=== PATIENT | female | born 1950 | race Caucasian/White ===

== ENCOUNTER 2016-10-08 07:29 | Inpatient (IN) | payer SELFPAY ==
[2016-10-08] VITALS (9 sets, daily range): BP systolic 102–138; BP diastolic 48–79
[~2016-10-08] VITALS: Ht 162.6 cm; Wt 65.1 kg
[2016-10-08 08:28] LABS: BASOPHILS 0.3 % (0-2); EOSINOPHILS 1.5 % (0-7); HEMATOCRIT 40.2 % (36.0-48.0); HEMOGLOBIN 13.7 g/dL (12-16); IMMATURE GRANULOCYTES 0.3 % (0-5); LYMPHOCYTES 5.7 % (15-50); MCH 32.6 pg (26.0-34.0); MCHC 34.1 g/dL (31.0-37.0); MCV 95.7 fL (80.0-100.0); MEAN PLATELET VOLUME 10.6 fL (7.4-10.4); MONOCYTES 7.1 % (2-11); NEUTROPHILS 85.1 % (40-80); PLATELET COUNT 241 10x3/uL (130-400); RDW 15.1 % (11.5-14.5); WBC 19.6 10x3/uL (4.8-10.8)
[2016-10-08 08:45] LABS: CREATINE KINASE 52 UL (21-215); TROPONIN-I < 0.017 ng/mL (0.000-0.060)
[2016-10-08 09:00] LABS: ALBUMIN 3.6 g/dL (3.4-5.0); ALKALINE PHOSPHATASE 152 U/L (46-116); ALT (SGPT) 176 U/L (10-68); CALC OSMOLALITY 275 mosm/kg (275-300); CALCIUM 9.6 mg/dL (8.5-10.1); CARBON DIOXIDE 25.9 mmol/L (21.0-32.0); CHLORIDE - SERUM 101 mmol/L (98-107); CREATININE - SERUM 0.7 mg/dL (0.6-1.3); GLUCOSE 114 mg/dL (74-106); POTASSIUM - SERUM 4.2 mmol/L (3.5-5.1); PROTEIN - SERUM 7.2 g/dL (6.4-8.2); SODIUM 138 mmol/L (136-145); UREA NITROGEN 10 mg/dL (7-18); eGFR NON AFRICAN AMERICAN 90 mL/min (90-120)
[2016-10-08 09:25] LABS: APPEARANCE CLEAR (CLEAR); BILIRUBIN NEGATIVE (NEGATIVE); COLOR YELLOW (YELLOW); GLUCOSE NEGATIVE (NEGATIVE); KETONE NEGATIVE (NEGATIVE); LEUKOCYTE ESTERASE NEGATIVE (NEGATIVE); NITRITE NEGATIVE (NEGATIVE); PROTEIN TRACE mg/dL (NEGATIVE); UROBILINOGEN NORMAL (NORMAL)
[2016-10-08 09:26] LABS: BACTERIA FEW /hpf (NONE SEEN); EPITHELIAL CELLS 0-5 /hpf (0-5); WHITE CELLS - URINE 0-5 /hpf (0-5)
[2016-10-08 09:44] LABS: UDS - AMPHET NEGATIVE QUAL (NEGATIVE); UDS - BARB NEGATIVE QUAL (NEGATIVE); UDS - BENZO NEGATIVE QUAL (NEGATIVE); UDS - COCAINE NEGATIVE QUAL (NEGATIVE); UDS - METH NEGATIVE QUAL (NEGATIVE); UDS - OPIATE NEGATIVE QUAL (NEGATIVE); UDS - PCP NEGATIVE QUAL (NEGATIVE); UDS - THC NEGATIVE QUAL (NEGATIVE)
--- NOTE | 2016-10-08 19:30 | NUR ---
SHIFT ASSESSMENT COMPLETED. SEE ASSESSMENT FLOWSHEET. BREATHING TREATMENT IN PROGRESS. SOB AFTERWARDS AND O2 SATS DECREASED TO 88% TEMPORARILY. O2 VIA CANNULA AND INCREASED TO 3LPM TEMPORARILY. SAT UP ON SIDE OF BED. SLOWLY BREATHING BACK TO BASELINE. WILL MONITOR.
--- NOTE | 2016-10-08 20:10 | NUR ---
PO MEDS GIVEN. WILL MONITOR.
--- NOTE | 2016-10-08 21:20 | NUR ---
FAMILY AT BEDSIDE. IV ABX HUNG. WILL MONITOR.
--- NOTE | 2016-10-08 22:55 | NUR ---
REASSESSMENT COMPLETED. SEE ASSESSMENT FLOWSHEET. JUST HAD BREATHING TREATMENT. ANOTHER PILLOW PLACED BEHIND BACK. O2 SATS 96%. TEMP 99.2 ORALLY. WILL MONITOR.
[2016-10-09] VITALS (21 sets, daily range): BP systolic 107–179; BP diastolic 44–93
--- NOTE | 2016-10-09 00:50 | NUR ---
EYES CLOSED. MOUTH OPEN. NO ACUTE DISTRESS NOTED. WILL MONITOR.
--- NOTE | 2016-10-09 02:00 | NUR ---
EYES CLOSED. MOUTH OPEN. NO ACUTE DISTRESS NOTED. WILL MONITOR.
--- NOTE | 2016-10-09 03:20 | NUR ---
REASSESSMENT COMPLETED. SEE FLOWSHEET. ASSISTED UP TO BSC TO URINATE. BACK TO BED. SOB NOTED. BREATHING TREATMENT PRN STARTED PER JANI WITH R.T.
--- NOTE | 2016-10-09 03:40 | NUR ---
CRACKERS AND PEANUT BUTTER GIVEN PER REQUEST.
[2016-10-09 04:22] LABS: BASOPHILS 0.1 % (0-2); EOSINOPHILS 0 % (0-7); HEMATOCRIT 34.9 % (36.0-48.0); HEMOGLOBIN 11.6 g/dL (12-16); IMMATURE GRANULOCYTES 0.4 % (0-5); LYMPHOCYTES 3.5 % (15-50); MCH 32.1 pg (26.0-34.0); MCHC 33.2 g/dL (31.0-37.0); MCV 96.7 fL (80.0-100.0); MEAN PLATELET VOLUME 10.3 fL (7.4-10.4); MONOCYTES 3.3 % (2-11); NEUTROPHILS 92.7 % (40-80); PLATELET COUNT 240 10x3/uL (130-400); RBC 3.61 10x6/uL (4.00-5.40); RDW 15.5 % (11.5-14.5); WBC 16.1 10x3/uL (4.8-10.8)
[2016-10-09 04:32] LABS: ALBUMIN 2.9 g/dL (3.4-5.0); ALKALINE PHOSPHATASE 137 U/L (46-116); AMYLASE - SERUM 29 U/L (25-115); CALCIUM 8.6 mg/dL (8.5-10.1); CARBON DIOXIDE 23.3 mmol/L (21.0-32.0); CHLORIDE - SERUM 107 mmol/L (98-107); CREATININE - SERUM 0.8 mg/dL (0.6-1.3); LIPASE 100 U/L (73-393); MAGNESIUM - SERUM 1.9 mg/dL (1.8-2.4); PHOSPHOROUS 2.1 mg/dL (2.5-4.9); SODIUM 139 mmol/L (136-145); eGFR NON AFRICAN AMERICAN 77 mL/min (90-120)
[2016-10-09 04:33] LABS: ALT (SGPT) 123 U/L (10-68); CALC OSMOLALITY 279 mosm/kg (275-300); GLUCOSE 172 mg/dL (74-106); POTASSIUM - SERUM 3.5 mmol/L (3.5-5.1); UREA NITROGEN 7 mg/dL (7-18)
--- NOTE | 2016-10-09 05:08 | NUR ---
EYES CLOSED. LIGHT IN ROOM STILL ON. AWOKE EASILY TO TAKE PO PROTONIX. EXPLAINED MED AND USE FOR. VERBALIZED UNDERSTANDING. IV ABX STARTED. WILL MONITOR.
--- NOTE | 2016-10-09 05:40 | NUR ---
KCL PO PLACED IN ORANGE JUICE AND GIVEN PER ELECTROLYTE PROTOCOL FOR K+ 3.5. COFFEE AND WATER ALSO GIVEN PER REQUEST. WILL MONITOR.
--- NOTE | 2016-10-09 11:47 | HP ---
PATIENT: MAURI UNDERWOOD MEDICAL RECORD: [id number] ACCOUNT: [id number] LOCATION:[facility] D.2302 : 52 ADMISSION DATE: 10/08/16 HISTORY AND PHYSICAL EXAMINATION Admission History and Physical HISTORY OF PRESENT ILLNESS: A 65-year-old female, who presents to the Emergency Room with a fever, chills, shortness of breath, long-term history of nicotine dependence, history of COPD, does not have a primary care doctor, has been in the urgent care multiple occasions. She is on albuterol inhaler. ALLERGIES: LISTED CODEINE, SULFA, PENICILLIN AND PHENOBARBITAL. FAMILY HISTORY: Noncontributory. REVIEW OF SYSTEMS: Significant for the above. No acute change in weight. HEENT: No cephalgia, visual changes, tinnitus, epistaxis or dysphagia. CARDIOVASCULAR: Denies chest pain. PULMONARY: Denies hemoptysis. Admits progressive shortness of breath, fever, chills significantly worse this morning. GASTROINTESTINAL: Denies hematemesis, hematochezia or melena. GENITOURINARY: Denies dysuria. MUSCULOSKELETAL: No acute changes. ENDOCRINE: Denies polyuria, polydipsia or polyphagia. PHYSICAL EXAMINATION VITAL SIGNS: Initially, temperature 99.2, spiked to 102; heart rate 118, respirations 22, blood pressure 141/67, O2 sats 92% with 2 liters via nasal cannula. HEENT: Normocephalic and atraumatic. Eyes: Pupils are equal, round and reactive. Ears: Canals patent. TMs intact. Nose: Nares patent, no drainage. Throat: No erythema, no exudates. NECK: Supple. HEART: Regular, tachycardic. LUNGS: Coarse rhonchi bilaterally. ABDOMEN: Soft and nontender. Bowel sounds positive. EXTREMITIES: Present times 4, no edema. NEUROLOGIC: No focal deficits. SKIN: Warm and dry. No rash. LABORATORY DATA: CBC: White count 19,600, hemoglobin 13.7, hematocrit 40.2. ABG showed a pO2 of 63. Chemistry showed a creatinine of 0.7, BUN 10, glucose 114, calcium 9.6, potassium 4.2, sodium 138, chloride 101, bicarb 25.9, total protein 7.2, alkaline phosphatase 152, ALT 176, AST 109. Urine drug screen negative. Urinalysis, no significant abnormalities. DIAGNOSTIC DATA: Chest x-ray: COPD pattern. The patient begun to desat. Chest PE protocol was obtained, which showed no PE, but did show bilateral patchy infiltrates consistent with pneumonia. EKG showed sinus tachycardia, rate of 120. No other significant changes. ASSESSMENT AND PLAN: Exacerbation of chronic obstructive pulmonary disease, acute pneumonia, hypoxemia. The patient was admitted to ICU, IV antibiotics, supplemental O2, DuoNebs, pulmonology consulted. HISTORY AND PHYSICAL [id number] MAURI UNDERWOOD TRANSINT:[id number] Voice Confirmation ID: [id number] DOCUMENT ID: [id number] IMELDA LOPEZ DO at 1147 CC: [id number] DICTATION DATE: 10/08/16 1339 AIR TURNING MACHINE FEEDER: 10/08/16 1532 ADM IN [place] [id number] [place] [address]
--- NOTE | 2016-10-09 11:57 | NUR ---
NO CHANGE NOTED AT PRESENT
--- NOTE | 2016-10-09 14:55 | NUR ---
NO CHANGE NOTED THIS SHIFT TO PRESENT
--- NOTE | 2016-10-09 19:15 | NUR ---
ASSESSMENT COMPLETE. S1S2. RR EXPIRATORY WHEEZE AND CRACKLES NOTED BILATERALLY IN UPPER AND MID LOBES. RR DIMINISHED BILATERALLY IN LOWER LOBES. C/O DYSPNEA AND BEING SOB. AAO. PERRLA. RADIAL AND PEDAL PULSES PALPATED. OCCASIONAL COUGH. FAMILY AT BEDSIDE. UPDATE GIVEN. QUESTIONS ANSWERED.
--- NOTE | 2016-10-09 21:10 | NUR ---
PT TOOK MEDICATIONS WITHOUT DIFFICULTY. FAMILY AT BEDSIDE.
--- NOTE | 2016-10-09 23:30 | NUR ---
PT DENIES ANY NEEDS AT THIS TIME. VSS. NO DISTRESS NOTED. CALL LIGHT IN REACH. C/O SOB. WILL CONTINUE TO MONITOR.
[2016-10-10] VITALS (10 sets, daily range): BP systolic 130–167; BP diastolic 79–95; Ht 162.6 cm; Wt 65.1 kg
--- NOTE | 2016-10-10 00:55 | NUR ---
PT RESTING. EYES CLOSED. VSS. NO DISTRESS NOTED. WILL CONTINUE TO MONITOR.
[2016-10-10 03:45] LABS: BASOPHILS 0.2 % (0-2); EOSINOPHILS 0 % (0-7); HEMATOCRIT 34.1 % (36.0-48.0); HEMOGLOBIN 11.8 g/dL (12-16); IMMATURE GRANULOCYTES 1.6 % (0-5); LYMPHOCYTES 5.7 % (15-50); MCH 33.2 pg (26.0-34.0); MCHC 34.6 g/dL (31.0-37.0); MCV 96.1 fL (80.0-100.0); MEAN PLATELET VOLUME 10.4 fL (7.4-10.4); MONOCYTES 5.2 % (2-11); NEUTROPHILS 87.3 % (40-80); PLATELET COUNT 260 10x3/uL (130-400); RBC 3.55 10x6/uL (4.00-5.40); RDW 15.3 % (11.5-14.5); WBC 19.3 10x3/uL (4.8-10.8)
[2016-10-10 03:55] LABS: CALC OSMOLALITY 288 mosm/kg (275-300); CALCIUM 8.8 mg/dL (8.5-10.1); CARBON DIOXIDE 25.4 mmol/L (21.0-32.0); CHLORIDE - SERUM 108 mmol/L (98-107); CREATININE - SERUM 0.7 mg/dL (0.6-1.3); GLUCOSE 176 mg/dL (74-106); PHOSPHOROUS 2.5 mg/dL (2.5-4.9); POTASSIUM - SERUM 3.4 mmol/L (3.5-5.1); SODIUM 144 mmol/L (136-145); UREA NITROGEN 7 mg/dL (7-18); eGFR NON AFRICAN AMERICAN 90 mL/min (90-120)
--- NOTE | 2016-10-10 11:00 | NUR ---
NO CHANGE NOTED
--- NOTE | 2016-10-10 19:33 | NUR ---
REPORT RECIEVED. ASSESSMENT COMPLETED. PT SOILED HER GOWN AND REQUESTED A BATH GAVE A CLEAN GOWN AND ALLOWED HER TO BATH HER SELF.
--- NOTE | 2016-10-10 23:42 | NUR ---
PT POSITIONED FOR COMFORT. PT STATED " SHE WAS GOGING TO SLEEP".
[2016-10-11 03:00] VITALS: BP 143/80
--- NOTE | 2016-10-11 03:00 | NUR ---
XRAY IS IN THE RM. PT BACK TO SLEEP AFTER.
[2016-10-11 04:01] LABS: HEMATOCRIT 36.7 % (36.0-48.0); HEMOGLOBIN 12.4 g/dL (12-16); MCH 31.9 pg (26.0-34.0); MCHC 33.8 g/dL (31.0-37.0); MCV 94.3 fL (80.0-100.0); MEAN PLATELET VOLUME 10.3 fL (7.4-10.4); PLATELET COUNT 292 10x3/uL (130-400); RBC 3.89 10x6/uL (4.00-5.40); RDW 15.5 % (11.5-14.5)
[2016-10-11 04:21] LABS: CALC OSMOLALITY 283 mosm/kg (275-300); CALCIUM 9.1 mg/dL (8.5-10.1); CARBON DIOXIDE 28.3 mmol/L (21.0-32.0); CHLORIDE - SERUM 106 mmol/L (98-107); CREATININE - SERUM 0.8 mg/dL (0.6-1.3); GLUCOSE 142 mg/dL (74-106); POTASSIUM - SERUM 3.7 mmol/L (3.5-5.1); PRO BNP 1917 pg/mL (0-125); SODIUM 142 mmol/L (136-145); eGFR NON AFRICAN AMERICAN 76 mL/min (90-120)
[2016-10-11 04:31] LABS: UREA NITROGEN 11 mg/dL (7-18)
[2016-10-11 04:42] LABS: LYMPHOCYTES 12 % (15-50); MONOCYTES 7 % (2-11); NEUTROPHILS 70 % (40-80); PLATELET ESTIMATE NORMAL
[2016-10-11 07:00] VITALS: BP 100/90
--- NOTE | 2016-10-11 07:00 | NUR ---
PT AAOX3 AND OBEYS COMMANDS WITH NO DEFICITS. DENIES PAIN AT THIS TIME. PRODUCTIVE COUGH NOTED AND PT STATES SHE CLLEARED HER SINUSES AND CAN NOW BREATHE EASIER. FULL SHIFT ASSESSMENT DOCUMENTED PER FLOWSHEET. PT SINUS TACH ON MONITOR. WILL MONITOR CLOSELY. TRANSFER ORDERS IN COMPUTER.
--- NOTE | 2016-10-11 09:50 | NUR ---
RECEIVED REPORT FROM ICU NURSE FRAN ALONZO RN. PT WILL BE TRANSFERED TO ROOM 2133 VIA WHEELCHAIR.
--- NOTE | 2016-10-11 10:30 | NUR ---
PT TRANSFER TO MED 2 VIA WHEELCHAIR ON 2L NC. BELONGINGS WITH PT. SET UP IN NEW ROOM, CALL LIGHT WITHIN REACH. REPORT CALLED TO ALEXANDR TIAN.
--- NOTE | 2016-10-11 10:45 | NUR ---
PT RECEIVED TO ROOM 2131, VIA WHEELCHAIR, PT ORIENTED TO ROOM AND CALL LIGHT, PROVIDED HER WITH A CUP OF ICE WATER, AND AN EXTRA PILLOW. PT STATED THAT SHE WANTS THE EAR CLIP THAT SHE HAD IN ICU, THAT IT HELPS WITH HER NICOTINE CRAVINGS. WILL CALL NAZIA IN ICU AND SEE IF SHE STILL HAS CLIP. PT DENIES ANY OTHER NEEDS AT THIS TIME. CALL LIGHT IN REACH, PT A LITTLE SOB ON 2L NC, NAD NOTED, CALL LIGHT IN REACH, NAD NOTED, WILL CONTINUE TO MONITOR.
--- NOTE | 2016-10-11 13:50 | NUR ---
PT STATED THAT SHE HAS BEEN HAVING PAIN TO HER LT LOWER QUADRANT, AND WANTED A HEATING PAD. WILL CALL DR. GRANADO AND ASK ABOUT GETTING A HEATING PAD. 8108- CALLED DR. GRANADO'S OFFICE, INFOMRED HIM THAT PT IS HAVING LT LOWER QUADRANT PAIN AND I WANTED TO KNOW IF IT WAS OKAY FOR PT TO HAVE A KPAD. DR. GRANADO STATED THAT IT WOULD BE OKAY FOR THE ORDER TO BE PUT IN.
--- NOTE | 2016-10-11 14:02 | NUR ---
IVBP OF VANCOMYCIN HUNG AT THIS TIME. PT DENIES ANY NEEDS AT THIS TIME. CALL LIGHT IN REACH, NAD NOTED, WILL CONTINUE TO MONITOR.
--- NOTE | 2016-10-11 15:11 | NUR ---
PT C/O PAIN OF 10/10, TO LT LOWER QUADRANT AND HEAD. ADMINISTERED 1000MG OF TYLENOL AND GAVE TESSALON MED AND HUNG LEVAQUIN IVPB AT THIS TIME. FAMILY AT BEDSIDE, CALL LIGHT IN REACH, PT DENIES ANY OTHER NEEDS AT THIS TIME. NAD NOTED, WILL CONTINUE TO MONITOR.
--- NOTE | 2016-10-11 15:36 | NUR ---
PT'S DAUGTHER CAME TO NURSES DESK TO NOTIFY ME THAT PT IS IN ROOM THROWING UP AND LEFT LOWER QUAD IS HURTING REALLY BAD FEELS LIKE SHE HAS A KNOT. WILL NOTIFY DR. GRANADO. 1540- DR. GRANADO NOTIFIED THAT PT IS HAVING LEFT LOWER QUAD PAIN AND FEELS LIKE SHE HAS A KNOT, ALSO THAT PT IS THROWING UP IN ROOM. NEW ORDER FOR CT OF ABD AND PELVIS WITH IV AND ORAL CONT. ALSO TO ORDER 4MG OF ZOFRAN Q4PRN.
[2016-10-11 15:40] VITALS: BP 168/69
--- NOTE | 2016-10-11 16:19 | NUR ---
ADMINISTERED 4MG OF ZOFRAN FOR NUASEA. PT UP TO CHAIR, STILL STATES PAIN LEVEL OF 10/10. DENIES ANY OTHER NEEDS AT THIS TIME. CALL LIGHT IN REACH, FAMILY AT BEDSIDE, NAD NOTED, WILL CONTINUE TO MONITOR.
--- NOTE | 2016-10-11 17:00 | NUR ---
PT TAKEN TO CT, VIA WHEELCHAIR AT THIS TIME, NAD NOTED.
--- NOTE | 2016-10-11 19:45 | NUR ---
RECEIVED REPORT, PT VISITING WITH FAMILY, DENIES ANY NEED, 02-2L, IV-L. WRIST-NS @75, PT IS A&O AND ABLIB, BED IS LOW, SRX2, CALL LIGHT IN REACH, WILL CONTINUE PLAN OF CARE
[2016-10-11 20:12] VITALS: BP 162/82
--- NOTE | 2016-10-11 23:35 | NUR ---
TOOK K-PAD TO PT, CELL TOWER CLIMBER AND SHE PLACED TO L. ABDOMEN, WILL CONTINUE TO MONITOR
[2016-10-11 23:40] VITALS: BP 163/82
--- NOTE | 2016-10-12 00:48 | NUR ---
ASSESSMENT COMPLETE, SEE FLOWSHEET, PT RESTING, NO DISTRESS NOTICE, BED IS LOW, SRX2, CALL LIGHT IN REACH, WILL CONTINUE PLAN OF CARE
[2016-10-12 03:31] VITALS: BP 150/74
[2016-10-12 05:10] LABS: BASOPHILS 0.3 % (0-2); EOSINOPHILS 0 % (0-7); HEMOGLOBIN 11.2 g/dL (12-16); IMMATURE GRANULOCYTES 7.2 % (0-5); LYMPHOCYTES 9.8 % (15-50); MCH 32.1 pg (26.0-34.0); MCHC 33.9 g/dL (31.0-37.0); MCV 94.6 fL (80.0-100.0); MEAN PLATELET VOLUME 10.3 fL (7.4-10.4); MONOCYTES 7.5 % (2-11); NEUTROPHILS 75.2 % (40-80); PLATELET COUNT 290 10x3/uL (130-400); RBC 3.49 10x6/uL (4.00-5.40); RDW 15.6 % (11.5-14.5); WBC 19.9 10x3/uL (4.8-10.8)
[2016-10-12 05:15] LABS: CALC OSMOLALITY 278 mosm/kg (275-300); CALCIUM 8.4 mg/dL (8.5-10.1); CARBON DIOXIDE 29.2 mmol/L (21.0-32.0); CHLORIDE - SERUM 105 mmol/L (98-107); CREATININE - SERUM 0.7 mg/dL (0.6-1.3); GLUCOSE 112 mg/dL (74-106); POTASSIUM - SERUM 3.5 mmol/L (3.5-5.1); SODIUM 140 mmol/L (136-145); UREA NITROGEN 10 mg/dL (7-18); eGFR NON AFRICAN AMERICAN 89 mL/min (90-120)
--- NOTE | 2016-10-12 07:19 | NUR ---
AM ROUNDS- PT IN BED, RECEIVING UPDRAFT. PT DENIES ANY NEEDS AT THIS TIME. CALL LIGHT IN REACH, NAD NOTED, WILL CONTINUE TO MONITOR.
[2016-10-12 08:23] LABS: IMMUNOGLOBULIN E 23 IU/mL (0-100)
[2016-10-12 08:31] VITALS: BP 141/72
--- NOTE | 2016-10-12 08:35 | NUR ---
ADMINISTERED MORNING MEDICATIONS, PT IN BED, DENIES ANY NEEDS AT THIS TIME. CALL LIGHT IN REACH, NAD NOTED, WILL CONTINUE TO MONITOR.
--- NOTE | 2016-10-12 11:31 | EC ---
PATIENT:MAURI UNDERWOOD DATE OF SERVICE: 10/08/16 SEX: F MEDICAL RECORD: [id number] DATE OF : [birth year] LOCATION:D.M2 D.213 AGE OF PATIENT: 66 ADMISSION DATE: 10/08/16 REFERRING PHYSICIAN: INTERPRETING PHYSICIAN: LINDA WALLER MD ECHOCARDIOGRAM REPORT ECHO CHARGES 4 ECHO COMPLETE CLINICAL DIAGNOSIS: SOB ECHOCARDIOGRAPHIC MEASUREMENTS (adult normal given) AC root (d.<3.7cm) 2.5 LV Septum d (<1.2 cm> 1.2 Valve Excursion 1.8 LV Septum (systole) 1.8 Left Atria (s.<4.0cm> 3.5 LVPW d(<1.2cm) 1.1 RV (d.<2.3cm) 2.1 LVPW (sytole) 1.9 LV diastole(<5.6CM) 4.8 MV E-F(>70mm/sec) LV systole 1.9 LVOT Diameter 1.7 MV exc.(>10mm) Est.ejection fraction (50-75%) Pericardial Effusion N DOPPLER: LVIT A 153 E 110 LA RVSP 32.0 LVOT 96.0 AOP1/2T Asc. Ao 303 RVOT 73.0 RA PA 49.0 AV Gradient Peak 37.0 AV Mean 19.0 AV Area 0.8 MV Gradient Peak 14.3 MV Mean 4.3 MV Area COMMENTS: Insurance Sales Representative: Lyndon SILVAOE Wildlife Conservationist:1 Dr. Waller TAPE# PACS DATE OF SERVICE: 10/10/2016 Echocardiogram FINDINGS: 1. Left ventricular chamber size is within normal limits. Left ventricular systolic function is normal. Overall ejection fraction estimated at 60%. 2. Left atrium, right atrium and right ventricular chamber sizes are within normal limits. 3. Valvular structures: Aortic valve demonstrates [id number] calcific ECHOCARDIOGRAM REPORT [id number] MAURI UNDERWOOD aortic stenosis. Valve area calculates to 0.8 cm-squared. There is a gradient of 37 mm across the valve. The remaining valvular structures have normal structure and motion. 4. Doppler interrogation elsewise reveals ilmo-ib-[id number] mitral regurgitation. No other valvular insufficiency or stenosis and pulmonary systolic pressure is normal estimated at 32 mmHg. 5. No evidence of pericardial effusion or left ventricular thrombus. TRANSINT:[id number] Voice Confirmation ID: [id number] DOCUMENT ID: [id number] LINDA WALLER MD at 1131 CC: [id number] DICTATION DATE: 10/11/16 1246 DESIGN TEACHER: 10/11/16 1638 ADM IN [facility] [address] [id number]
[2016-10-12 12:17] LABS: IMMUNOGLOBULIN A 64 mg/dL (87-352); IMMUNOGLOBULIN G 446 mg/dL (700-1600)
[2016-10-12 12:29] VITALS: BP 128/58
--- NOTE | 2016-10-12 13:40 | NUR ---
PT FIXING TO GET IN THE SHOWER, IV DISCONNECTED AT THIS TIME, MIXER WHIPPED TOPPING AT BEDSIDE TO CHANGE LINENS ON PT'S BED. NAD NOTED, WILL CONTINUE TO MONITOR.
--- NOTE | 2016-10-12 15:23 | NUR ---
Patient Name: MAURI UNDERWOOD Admission Status: ER Accout number: [id number] Admission Date: 10-08-2016 : 1950 Admission Diagnosis:FEVER, UNSPECIFIED Attending: YUMIKO Current LOS: 4 Anticipated DC Date: Planned Disposition: Home Primary Insurance: UNINSURED DISCOUNT PLAN Discharge Planning Comments: * Is the patient Alert and Oriented? Yes 0 * How many steps to enter\exit or inside your home? 7 0 * PCP NONE HAS BEEN UTILIZING WALK IN CLINIC SERVICES 0 * Pharmacy [facility] [address] 0 * Preadmission Environment Home Alone 0 * ADLs Independent 0 * Equipment Nebulizer 0 * Other Equipment NO MEDICAL EQUIPMENT PROVIDER PREFERENCE 0 * List name and contact numbers for known caregivers / representatives who currently or will assist patient after discharge: RHONDA RAYMOND, DTR, 0 * Community resources currently utilized None 0 * Please name any agencies selected above. NONE 0 * Additional services required to return to the preadmission environment? No 0 * Can the patient safely return to the preadmission environment? Yes 0 * Has this patient been hospitalized within the prior 30 days at any hospital? No 0 CM MET WITH PT IN ROOM TO DISCUSS DISCHARGE PLANNING AND NEEDS. PT REPORTS LIVING AT HOME INDEPENDENTLY AND ALONE. PT HAS NEBULIZER THAT SHE ORDERED ONLINE FROM [employer] AND NO MEDICAL EQUIPMENT PROVIDER PREFERENCE. PT HAS NO OUTSIDE SERVICES ASSISTING IN THE HOME. CM DISCUSSED AVAILABILITY OF HOME HEALTH, REHAB SERVICES AND MEDICAL EQUIPMENT. PT REPORTS WORKING FOR [employer] AND WILL BE GETTING INSURANCE IN . CM PROVIDED AND DISCUSSED [facility] INFORMATION PT IS SEEKING A PRIMARY CARE DOCTOR. PT DENIES DISCHARGE NEEDS, REPORTS HER DAUGHTER WILL PICK HER UP FOR DISCHARGE HOME. Fire Engineer: Tong Davies
[2016-10-12 15:45] VITALS: BP 120/66
--- NOTE | 2016-10-12 19:33 | NUR ---
ASSESSMENT HARPREET, A&O, SITTING UP IN BED, VISITING WITH COMPANY AT BED SIDE. RESPERATIONS LABORED WITH EXERTION, CURRENTLY RECIEVING UPDRAFT. IV TO LEFT WRIST WITH NS INFUSING AT 75 CC/HR. PT DENIES NEEDS AT THIS TIME, BED LOW, CL IN REACH.
[2016-10-12 20:00] VITALS: BP 149/76
--- NOTE | 2016-10-12 20:43 | NUR ---
HS MEDS GIVEN, MOTRIN 800 MG TAB GIVEN AT PT REQUEST FOR C/O PAIN TO ABD. RATES PAIN AT A 9 ON PAIN SCALE. VISITIOR AT BED SIDE.
[2016-10-13] VITALS: BP 157/74
--- NOTE | 2016-10-13 01:49 | NUR ---
RESTING WITH EYES CLSED, RESPERATIONS EVEN, NO S/S DISTRESS NOTED.
--- NOTE | 2016-10-13 03:37 | NUR ---
TRACKMOBILE OPERATOR AT BEDSIDE TO OBTAIN VITALS, WILL CONTINUE WITH PLAN OF CARE.
[2016-10-13 04:00] VITALS: BP 158/74
[2016-10-13 04:34] LABS: BASOPHILS 0.5 % (0-2); EOSINOPHILS 1.2 % (0-7); HEMATOCRIT 31.2 % (36.0-48.0); HEMOGLOBIN 10.6 g/dL (12-16); IMMATURE GRANULOCYTES 9.8 % (0-5); LYMPHOCYTES 16.3 % (15-50); MCH 31.8 pg (26.0-34.0); MCV 93.7 fL (80.0-100.0); MONOCYTES 6.9 % (2-11); NEUTROPHILS 65.3 % (40-80); PLATELET COUNT 269 10x3/uL (130-400); RBC 3.33 10x6/uL (4.00-5.40); RDW 15.3 % (11.5-14.5); WBC 15.3 10x3/uL (4.8-10.8)
[2016-10-13 04:52] LABS: CALC OSMOLALITY 279 mosm/kg (275-300); CALCIUM 7.8 mg/dL (8.5-10.1); CARBON DIOXIDE 30.1 mmol/L (21.0-32.0); CHLORIDE - SERUM 107 mmol/L (98-107); CREATININE - SERUM 0.8 mg/dL (0.6-1.3); GLUCOSE 92 mg/dL (74-106); POTASSIUM - SERUM 3.2 mmol/L (3.5-5.1); SODIUM 141 mmol/L (136-145); UREA NITROGEN 11 mg/dL (7-18); VANCOMYCIN - TROUGH 23.5 ug/mL (10.0-20.0); eGFR NON AFRICAN AMERICAN 76 mL/min (90-120)
--- NOTE | 2016-10-13 07:14 | NUR ---
AM ROUNDS- PT SITTING UP IN BED, REQUESTED A CUP OF COFFEE AND A CUP OF ICE WATER. WILL PROVIDED PT WITH BOTH. PT DENIES ANY OTHER NEEDS AT THIS TIME. CALL LIGHT IN REACH, NAD NOTED, WILL CONTINUE TO MONITOR.
[2016-10-13] MEDS ORDERED: PROAIR HFA8.5 GM INH (07:52)
[2016-10-13] MEDS ORDERED: LEVAQUIN750 MG PO (07:52)
[2016-10-13] MEDS ORDERED: SYMBICORT 16010.2 GM INH (07:53)
[2016-10-13 08:00] VITALS: BP 160/66
--- NOTE | 2016-10-13 08:22 | NUR ---
ADMINISTERED MORNING MEDICATIONS. PT IN BED, EATING BREAKFAST. STATES THAT SHE IS GETTING TO GO HOME TODAY. DENIES ANY NEEDS AT THIS TIME. CALL LIGHT IN REACH, NAD NOTED, WILL CONTINUE TOMONITOR.
--- NOTE | 2016-10-13 08:55 | NUR ---
RESPIRATORY THERAPIST NOTIFIED THIS RN, THAT PT'S O2 SITTING DOWN WAS 91% AND THEN WHEN SHE STARTED WALKING IT DROPPED TO 85 [address]. WILL NOTIFY DR. LOPEZ 0900- CALLED DR. LOPEZ AND NOTIFIED HIM REGARDING PT'S O2. HE STATED TO LET CASE MANAGEMENT KNOW TO ORDER HOME O2 FOR PT. ORDERED PUT IN AND NOTIFIED JAVA SPRING DEVELOPER
--- NOTE | 2016-10-13 09:58 | NUR ---
Patient Name: MAURI UNDERWOOD Encounter No: [id number] : 1950 Primary Insurance: UNINSURED DISCOUNT PLAN Anticipated DC Date: 10-13-2016 Planned Disposition: Home DCP follow-up note: CM RECEIVED DISCHARGE ORDER AND ORDER FOR HOME OXYGEN. CM MET WITH PT IN ROOM, PT IS CONSIDERING GOING HOME WITHOUT OXYGEN AND "TAKING IT EASY AT HOME". CM EXPLAINED NEED FOR OXYGEN. PT HAS NO INSURANCE. CM CALLED LOCAL COMPANIES, HIGHEST COSTS WAS [facility] ($3500) FOR PORTABLE CONCENTRATOR. LOWEST WAS [employer] ($60 MONTH CONCENTRATOR $40 PER E-TANK WITH FREE REFILLS). OPTIONS PRESENTED TO PT, PT REPORTS ABILITY TO AFFORD OXYGEN FROM [employer], PT REPORTS SHE WAS SPENDING $35 PER WEEK ON CIGARETTES PRIOR TO HOSPITALIZATION BUT IS NO LONGER SMOKING; REQUESTED CM ARRANGE WITH THEM FOR PT'S OXYGEN SERVICE. CM CALLED MISTY AT [facility], , WHO WILL PROCESS ORDER AND MAKE ARRANGEMENTS WITH PT FOR PORTABLE DELIVERY TO PT'S ROOM FOR DISCHARGE TODAY. CM FAXED REFERRAL TO [facility] AT [phone]. PT NOTIFIED WHO REPORTS HAVING FAMILY TO PICK HER UP ONCE PORTABLE IS DELIVERED TO PT'S ROOM. BEDSIDE NURSE NOTIFIED. ELEANOR FRANCOIS, CASE MANAGEMENT
--- NOTE | 2016-10-13 10:40 | NUR ---
PROVIDED VERBAL AND WRITTEN DISCHARGE TEACHING TO PT. PT VERBALIZED UNDERSTANDING REGARDING DICHARGE TEACHING. D/C LT WRIST IV, TIP INTACT. PT WAITING FOR HOME O2 TO BE DELIVERED BY [facility]. PT DENIES ANY NEEDS AT THIS TIME. CALL LIGHT IN REACH, NAD NOTED, WILL CONTINUE TO MONITOR.
--- NOTE | 2016-10-13 10:49 | NUR ---
CT RESULTS BACK, CALLED DR. LOPEZ TO NOTIFY HIM OF RESULTS. DR. LOPEZ STATED THAT HE ALREADY TALKED TO THE RADIOLOGIST.
--- NOTE | 2016-10-13 11:10 | NUR ---
AFTER DISCHARGE INSTRUCTIONS PROVIDED TO PATIENT, PATIENT CHANGED HER MIND AND DECIDED TO HAVE REFERRAL TO [facility]. REFERRAL FORM COMPLETED AND FAXED TO QUIT LINE.
--- NOTE | 2016-10-13 12:23 | NUR ---
PT LEFT UNIT VIA WHEELCHAIR, HELPED PT TAKE HER STUFF TO HER CAR, NAD NOTED.
--- NOTE | 2016-10-14 07:56 | DS ---
PATIENT:MAURI UNDERWOOD :[birth year] MEDICAL RECORD: [id number] DISCHARGE SUMMARY ADMISSION DATE: 10/08/16 DISCHARGE DATE: 10/13/16 DATE OF ADMISSION: 10/08/2016 DATE OF DISCHARGE: 10/13/2016 HISTORY OF PRESENT ILLNESS: A 66-year-old female presented to the Emergency Room with fever, chills, and shortness of breath. ADMISSION DIAGNOSES: Exacerbation of chronic obstructive pulmonary disease, pneumonia and hypoxemia. DISCHARGE DIAGNOSES: Exacerbation of chronic obstructive pulmonary disease, pneumonia and hypoxemia. CONSULTS: Pulmonology. PROCEDURES: CTA chest, no pulmonary emboli, did show findings consistent with pneumonia. The patient was admitted. White count was 19,600. Again, the CTA showed patchy infiltrates consistent with pneumonia, started on empiric IV antibiotics. Blood and sputum cultures remained negative to date. The patient is feeling much better. She is ambulating independently. She was placed on IV steroids, breathing is improved. She is anxious to go home. Again, counseled on smoking cessation. PHYSICAL EXAMINATION: VITAL SIGNS: On discharge, temp 98.8, blood pressures 150/74, heart rate 87, respirations 18, O2 sats 93%. GENERAL: She is alert, oriented, in no distress. HEART: Regular rate and rhythm. LUNGS: Clear. Breathing is nonlabored. ABDOMEN: Soft. EXTREMITIES: Present times 4. NEUROLOGIC: Intact. SKIN: Warm and dry. She will continue Levaquin for 5 additional days, albuterol inhaler, and Symbicort inhaler. DISCHARGE INSTRUCTIONS: The patient can follow up with me in the clinic in 2 weeks and will follow up with her primary care physician. I recommend she follow up with pulmonology in 2 weeks as well and return to the Emergency Room with worsening symptoms. Again, counseled on smoking cessation. Agree with assessments from pulmonology. DISPOSITION: The patient is discharged to home in significantly improved condition. Please see chart for further details. TRANSINT:[id number] Voice Confirmation ID: [id number] DOCUMENT ID: [id number] DISCHARGE SUMMARY REPORT [id number] KJLORELEIMAURIIMELDA THORNE DO at 0756 CC: [id number] DICTATION DATE: 10/13/16 0801 DOBBY LOOM WEAVER: 10/14/16 0059 DIS IN 10/13/16 [facility] [address] [place] [address]
== END 2016-10-13 12:23 | disposition home or self-care (01) | DRG 871 ==
LOC: D.ER 07:29 → D.ICU 13:37 → D.M2 10-11 10:45
PROVIDERS: Emergency Medicine; Internal Medicine Pulmonary Disease; ADMIT Family Medicine
DX: A41.9 Sepsis, unspecified organism (principal); J15.6 Pneumonia due to other Gram-negative bacteria; J13 Pneumonia due to Streptococcus pneumoniae; J96.01 Acute respiratory failure with hypoxia; J44.0 Chronic obstructive pulmonary disease with (acute) lower respiratory infection; J44.1 Chronic obstructive pulmonary disease with (acute) exacerbation; F17.200 Nicotine dependence, unspecified, uncomplicated; J30.9 Allergic rhinitis, unspecified; R74.8 Abnormal levels of other serum enzymes; Z86.73 Personal history of transient ischemic attack (TIA), and cerebral infarction without residual deficits